=== PATIENT | male | born 1965 | race Caucasian/White ===

== ENCOUNTER 2018-09-29 15:27 | Emergency (ER) | payer BC ==
--- OUTSIDE RECORDS SUMMARY | 2018-09-29 15:43 | XMS REPORT | Continuity of Care Document ---
:1965 External Reference #:[id number] Author Name Abby Joseph, MS, SUSTAINABILITY ANALYST-C, CNM Address [address] [place] [address] Care Team Providers Name Role Phone Yamila Ashley MD Care Team Information Fisher Scallop Unavailable Yamila Ashley MD Primary Care Physician Unavailable Payers Date Identification Numbers Payment Provider Subscriber Policy Number: [id number] Huma Alex Darryl Gavin PayID: [id number] [address] [address] [place] [address] Expires: 2018 Policy Number: [id number] Huma Alex Darryl Alonso PayID: [id number] [address] [address] [place] [address] Problems Active Problems Provider Date Benign essential hypertension Manuel Randle MD Onset: 09/18/2018 Family History Date Family Member(s) Observation Comments General Non Contributory Father 75 Mother 76 Social History Type Date Description Comments Sex Unknown Marital Status Single Lives With Alone Home Environment Lives Alone Diet Healthy, Well Balanced Occupation [employer] Work Status Currently Working Smokeless Tobacco Never Used Smokeless Tobacco ETOH Use Currently consumes 3 times a year alcohol socially Tobacco Use Start: Unknown End: Patient is a former QUIT age 41 Unknown smoker Recreational Drug Use Denies Drug Use Smoking Status Reviewed: 07/06/18 Patient is a former QUIT age 41 smoker Allergies, Adverse Reactions, Alerts Description No Known Drug Allergies Medications Active Medications SIG Qnty Indications Ordering Date Provider Dulcolax 4 tablets taken a 4tabs Z12.11 Manuel Randle, 09/27/[address] 8pm the day before MD the procedure Magnesium Citrate 296ml Z12.11 Manuel Randle, 09/27/2018 1.745GM/30ML Solution Plenvu take half the 1box Z12.11 Manuel Randle, 09/27/2018 140gm Solution bottle the day Rec before the exam half the morning Amlodipine Besylate 1 by mouth every 30tabs I10 Yamila Ashley, 06/22/2018 5mg day MD Tablets Multivitamin Adult 1 by mouth every Unknown day Tablets History Medications Ergocalciferol take one a 12caps E55.9 Yamila Ashley, 07/06/2018 - [id number] week 09/27/2018 Capsules No Active Medications Unknown 06/22/2018 - 06/22/2018 No Active Medications Unknown 08/24/2015 - 08/24/2015 Amlodipine Besylate 1 by mouth 30tabs Yamila Ashley, 08/24/2015 - 5mg once a day 06/22/2018 Tablets Immunizations CPT Code Status Date Vaccine Lot # [id number] Given 07/06/2018 Influenza Virus Vaccine, Quadrivalent, 36 Mos+, [id number] .[id number] Given 08/24/2015 Tdap injection [id number] Vital Signs Date Vital Result Comment 09/27/2018 8:49am BP Systolic Sitting Left Arm 120 mmHg BP Diastolic Sitting Left Arm 90 mmHg Heart Rate 60 /min Respiratory Rate 16 /min Height 65.6 inches 5'5.60" Weight 277.00 lb BMI (Body Mass Index) 45.3 kg/m2 BSA (Body Surface Area) 2.29 m2 [place] body weight in kilograms 63 kg O2 % BldC Oximetry 91 % Ra 07/06/2018 1:35pm BP Systolic Sitting Left Arm 128 mmHg lg manual cuff BP Diastolic Sitting Left Arm 88 mmHg lg manual cuff Body Temperature 98.1 F Heart Rate 79 /min Respiratory Rate 18 /min Height 65.6 inches 5'5.60" Weight 267.00 lb BMI (Body Mass Index) 43.6 kg/m2 BSA (Body Surface Area) 2.25 m2 [place] body weight in kilograms 63 kg O2 % BldC Oximetry 95 % Ra 06/22/2018 2:03pm BP Systolic Sitting Right Arm 138 mmHg BP Diastolic Sitting Right Arm 98 mmHg Body Temperature 98.9 F Heart Rate 82 /min reg Respiratory Rate 24 /min Height 65.6 inches 5'5.60" Weight 268.00 lb BMI (Body Mass Index) 43.8 kg/m2 BSA (Body Surface Area) 2.25 m2 [place] body weight in kilograms 63 kg O2 % BldC Oximetry 98 % ra 08/24/2015 8:50am BP Systolic 138 mmHg BP Diastolic 94 mmHg Respiratory Rate 72 /min Height 65.6 inches 5'5.60" Weight 267.00 lb BMI (Body Mass Index) 43.6 kg/m2 BSA (Body Surface Area) 2.25 m2 O2 % BldC Oximetry 98 % Results Test Date Facility Test Result H/L Range Note CBC 06/23/2018 [facility] White Blood 8.0 K/uL N 3.4-10.5 1 W/Automated [address] [place] [address] [phone] Red Blood Count 5.50 M/uL N 4.20-5.80 Hemoglobin 16.1 gm/dL N 12.8-17.0 Hematocrit 48.2 % High 38.0-48.0 Mean Cell Volume 87.6 fl N 80.0-96.0 Mean Corpuscular HGB 29.3 pg N 27.0-33.0 Mean Corpuscular HGB Conc 33.4 g/dL N 31.7-36.0 Platelet Count 225 K/uL N 155-360 Red Cell Distri Width SD 46.5 fl N 36-51 Red Cell Distri Width %CV 14.6 % N 11.6-15.8 Mean Platelet Volume 9.8 fL N 6.6-10.6 Neut% 62.7 % N 33.0-73.0 Lymph % 21.2 % N 20.0-42.0 [place] % 11.5 % High 0.0-10.0 Eo% 4.0 % N 0.0-6.6 Bas% 0.6 % N 0.0-1.1 Neut# 5.04 K/uL N 1.8-7.0 Lymph # 1.70 K/uL N 1.0-4.0 [place] # 0.92 K/uL High 0.0-0.8 Eos # 0.32 K/uL N 0.0-0.5 Baso # 0.05 K/uL N 0.0-0.1 Comprehensive Metabolic 06/23/2018 [facility] Glucose 102 mg/dL N 74-106 Panel [address] [place] [address] [phone] BUN 14 mg/dL N 7-18 Creatinine 1.0 mg/dL N 0.6-1.3 Glom Filtration Rate, Estimate >60 mL/min >60 If >60 mL/min >60 2 BUN/Creat 14.0 ratio Sodium 141 mmol/L N 136-145 Potassium 3.9 mmol/L N 3.5-5.1 Chloride 106 mmol/L N 98-107 Carbon Dioxide 30 mmol/L N 21-32 Anion Gap 5 mEq/L Low 8-16 Calcium 8.9 mg/dL N 8.5-10.1 Total Protein 7.7 g/dL N 6.4-8.2 Albumin 3.7 g/dL N 3.4-5.0 Globulin 4.0 g/dL N 1.9-4.3 Alb/Glob 0.9 ratio Bilirubin,Total 0.5 mg/dL N 0.2-1.0 Sgot/Ast 18 U/L N 15-37 SGPT/Alt 26 U/L N 12-78 Alkaline Phosphatase 43 U/L Low 45-117 Glycohemoglobin A1c 06/23/2018 [facility] Glycohemoglobin 5.5 % N 4.2-6.3 3 [address] (A1c) [place] [address] [phone] eAG 111 mg/dL LDL Cholesterol Profile 06/23/2018 [facility] Cholesterol 150 mg/dL <200 4 [address] [place] [address] [phone] Triglycerides 69 mg/dL <150 5 HDL Cholesterol 61 mg/dL >40 6 LDL-Cholesterol 75 mg/dL < 100 7 Laboratory 06/23/2018 [facility] Vitamin 22.7 Low 30.0-100.0 8 test finding [address] D,25-Hydroxy ng/[place] [address] [phone] Slide Review (SEE NOTE) 9 1 E66.09 2 Note: Persistent reduction for 3 months or more in an eGFR <60 mL/min/1.73 m2 defines CKD. Patients with eGFR values >/=60 mL/min/1.73 m2 may also have CKD if evidence of persistent proteinuria is present. The original MDRD equation for estimated GFR is not valid for patients less than 18 years of age. Additional information may be found at www.kdoqi.org. 3 Elevated levels of HbA1c suggest the need for more aggressive treatment of glycemia. The [place] [employer] recommends that a primary goal of therapy should be a HbA1c of <7% and that physicians should re-evaluate the treatment regimen in patients with HbA1c values consistently >8%. 4 Reference Guidelines*: Desirable: ........... < 200 mg/dL Borderline High: ..... 200-239 mg/dL High: ................ >=240 mg/dL * The National Cholesterol Education Program (NCEP) 5 Reference Guidelines*: Normal: ............. < 150 mg/dL Borderline High: .... 150-199 mg/dL High: ............... 200-499 mg/dL Very High: .......... > 500 mg/dL * Source: National Cholesterol Education Program (NCEP) 6 Reference Guidelines*: Low HDL: ..... < 40 mg/dL Normal: ..... 40-60 mg/dL Desirable: ... > 60 mg/dL *The National Cholesterol Education Program(NCEP) 7 Reference Guidelines*: Optimal:........... <100 mg/dL Near Optimal....... 100-129 mg/dL Borderline High.... 130-159 mg/dL High............... 160-189 mg/dL Very High.......... >=190 mg/dL * Source: National Cholesterol Education Program (NCEP) 8 Vitamin D deficiency has been defined by the [place] of Medicine and an Endocrine Society practice guideline as a level of serum 25-OH vitamin D less than 20 ng/mL (1,2). The Endocrine Society went on to further define vitamin D insufficiency as a level between 21 and 29 ng/mL (2). 1. IOM ([place] of [employer]). 2010. Dietary reference intakes for calcium and D. [place]: The National Academies Press. 2. Megan BURKETT, Aurelio DODGE, Silver MCHUGH, et al. Evaluation, treatment, and prevention of vitamin D deficiency: an Endocrine Society clinical practice guideline. JCEM. 2010; 96(7):1911-30. Performed at: RN - [facility] [address] [id number] Family Practice Md: Liz Corona MD, Phone: [phone] Instrument flagged sample for slide review. Less than 10% Bands seen, no other immature WBC's seen. RBC morphology essentially normal. Platelet estimate=NORMAL Encounters Type Date Location Provider Dx Diagnosis Office Visit 07/06/2018 Primary [facility] Opal, Azael0 Essential (primary) 2:00p Office MS Abby, hypertension SUSTAINABILITY ANALYST-C, CNM E66.09 Other obesity due to excess calories E55.9 Vitamin D deficiency, unspecified Z23 Encounter for immunization Office Visit 06/22/2018 2:00p Primary Care Abby Joseph, Azael0 Essential (primary) Office MS, SUSTAINABILITY ANALYST-C, CNM hypertension E66.09 Other obesity due to excess calories Z12.11 Encounter for screening for malignant neoplasm of colon Office Visit 08/24/2015 8:40a Primary Care Lay Ashleya, E66.09 Other obesity Office MD due to excess calories I10 Essential (primary) hypertension Z23 Encounter for immunization Plan of Treatment Future Appointment(s):11/22/2018 2:45 pm - Manuel Randle MD at GI10/12/2018 1:00 pm - Abby Joseph, , SUSTAINABILITY ANALYST-C, CNM at [facility]/27/2018 - Manuel Randle MDZ12.11 Encounter for screening for malignant neoplasm of colonNew Medication:Dulcolax 5 mg - 4 tablets taken a 8pm the day before the procedureMagnesium Citrate 1.745 GM/30ML -Plenvu 140 gm - take half the bottle the day before the exam half the morningNew Orders:Colonoscopy, Ordered:
[2018-09-29 15:46] VITALS: BP 138/87
[2018-09-29] MEDS ORDERED: Tetracaine 0.5% OPTH.SOL 4 ML* 1 DROP BTL BOTH EYES ONE (15:50)
[2018-09-29] MEDS ORDERED: Fluorescein Sodium TOPICAL* 1 MG TEST STRIP OPHTHALMIC ONE (15:50)
--- NOTE | 2018-09-29 16:00 | UC ---
Eye Complaint HPI - HPI Summary HPI Summary: C/O left eye redness and pain x 3 days. ? FB in eye. - History of Current Complaint Chief Complaint: UCEye Stated Complaint: LEFT EYE COMPLAINT Time Seen by Provider: 09/29/18 15:49 Hx Obtained From: Patient Onset/Duration: Sudden Onset, Lasting Days - 3, Still Present Timing: Constant Severity Initially: Mild Severity Currently: Mild Pain Intensity: 0 Location of Injury: Eye Lid (upper) - Left Character: Dull Alleviating Factor(s): Nothing Associated Signs And Symptoms: Positive: Swelling. Negative: Photophobia, Drainage (Purulent), Vision Impairment Left, Fever - Risk Factors Penetrating Injury Risk Factor: Negative - Allergies/Home Medications Allergies/Adverse Reactions: Allergies Allergy/AdvReac Type Severity Reaction Status Date / Time No Known Allergies Allergy Verified 09/29/18 15:46 Home Medications: Home Medications Blood Pressure Medication 5 mg DAILY 09/29/18 [History] PMH/Surg Hx/FS Hx/Imm Hx Cardiovascular History: Hypertension - Surgical History Surgical History: None - Family History Known Family History: Positive: Hypertension - Social History Occupation: Employed Full-time Lives: With Family Alcohol Use: Rare Substance Use Type: None Smoking Status (MU): Never Smoked Tobacco Review of Systems All Other Systems Reviewed And Are Negative: Yes Eyes: Positive: Eye Redness - in the left upper lid Is Patient Immunocompromised?: No Physical Exam Triage Information Reviewed: Yes Appearance: Well-Appearing, No Pain Distress, Obese Vital Signs: Initial Vital Signs Temp 98.4 F 09/29/18 15:44 Pulse 87 09/29/18 15:44 Resp 12 09/29/18 15:44 BP 138/87 09/29/18 15:44 Pulse Ox 98 09/29/18 15:44 Vital Signs Reviewed: Yes Eyes: Positive: Conjunctiva Inflamed, Other: - swelling left upper eyelid, greater on the nasal portion. Flipped lid and no FB under the lid. Flourescein stain negative for uptake OS.. Negative: Discharge ENT Exam: Normal Neck exam: Normal Respiratory Exam: Normal Cardiovascular Exam: Normal Musculoskeletal Exam: Normal Neurological Exam: Normal Psychological Exam: Normal Skin Exam: Normal Eye Complaint Course/Dx - Differential Dx/Diagnosis Differential Diagnosis/HQI/PQRI: Conjunctivitis, Corneal Abrasion, Uveitis Provider Diagnosis: Hordeolum externum left upper eyelid Discharge - Sign-Out/Discharge Documenting (check all that apply): Patient Departure All imaging exams completed and their final reports reviewed: No Studies - Discharge Plan Condition: Stable Disposition: HOME Prescriptions: Erythromycin OPTH OINT* [Erythromycin 0.5% OPTH OINT*] 1 applic LEFT EYE TID # 3.5 gm Patient Education Materials: Rose (ED), Erythromycin (Into the eye) Referrals: Yamila Ashley MD [Primary Care Provider] - Additional Instructions: EYE OINTMENT USE: Wash hands. Place 1/4" strip across tip of finger. Pull lower lid down with the index finger and stabilize the ointment finger with the middle finger and scrape the ointment off on the lid. Pull the lid out and let go as you look down. - Billing Disposition and Condition Condition: STABLE Disposition: Home
== END 2018-09-29 16:15 | disposition home or self-care (01) ==
LOC: UCCORT 15:27
DX: H00.014 Hordeolum externum left upper eyelid (principal); I10 Essential (primary) hypertension
CPT/HCPCS: 99202; A9270-GY; G0463